=== PATIENT | female | born 1940 | race Caucasian/White ===

== ENCOUNTER 2018-04-12 20:06 | Inpatient (IN) | payer MEDICARE ==
[2018-04-12] MEDS ORDERED: NS 0.9% 1000 ML*IV.FLUID IV ONE (20:26)
[2018-04-12] MEDS ORDERED: cefTRIAXone(*) 1 GM in NS 0.9% 50 ML* 50 ML IVPB ONE (20:27)
--- NOTE | 2018-04-12 20:30 | ED ---
HPI Febrile Illness - HPI Summary HPI Summary: Level 5 caveat: Unable to obtain complete HPI due to dementia The pt is a 77 y/o female presenting to [facility] c/o fever reaching 103.4 F since 18:00 today. She arrives from [facility] Staff report new urinary incontinence, hypertension and confusion. - History of Current Complaint Chief Complaint: EDFever Time Seen by Provider: 04/12/18 20:17 Hx Obtained From: Family/Geological Manager - [facility] staff, EMS Hx From Patient Unobtainable Due To: Dementia Onset/Duration: Started Hours Ago - 18:00hrs, Still Present Timing: Constant Current Severity: Moderate Pain Intensity: 6 Pain Scale Used: 0-10 Numeric Aggravating Factors: Nothing Alleviating Factors: Nothing - Additional Pertinent History Primary Care Physician: EMA - Allergy/Home Medications Allergies/Adverse Reactions: Allergies Allergy/AdvReac Type Severity Reaction Status Date / Time Penicillins Allergy Hives/Diff. Verified 04/12/18 20:13 Breathing/I tching Sulfa (Sulfonamide Allergy Hives/Diff. Verified 04/12/18 20:13 Antibiotics) Breathing/I tching PMH/Surg Hx/FS Hx/Imm Hx Previously Healthy: No - Level 5 caveat: Unable to obtain complete PMHx due to dementia Endocrine/Hematology History: Reports: Hx Thyroid Disease Denies: Hx Diabetes Cardiovascular History: Denies: Hx Hypertension, Hx Pacemaker/ICD GI History: Reports: Hx Gall Bladder Disease History: Denies: Hx Renal Disease Musculoskeletal History: Reports: Hx Osteoporosis, Other Musculoskeletal History - carpel tunnel Denies: Hx Arthritis, Hx Rheumatoid Arthritis Sensory History: Reports: Hx Contacts or Glasses Denies: Hx Hearing Aid Opthamlomology History: Reports: Hx Contacts or Glasses Neurological History: Reports: Hx Dementia Psychiatric History: Reports: Hx Depression, Other Psychiatric Issues/Disorders Denies: Hx Eating Disorder, Hx Panic Disorder, Hx of Violent Episodes Against Others - Cancer History Hx Chemotherapy: No Hx Radiation Therapy: No - Surgical History Surgery Procedure, Year, and Place: Carpel tunnel surgery bilaterally, hysterectomy, appendectomy. LEGS- VEIN STRIPPING Hx Anesthesia Reactions: No Infectious Disease History: No Infectious Disease History: Denies: Traveled Outside the [place] in Last 30 Days - Family History Known Family History: Positive: Unknown - Social History Occupation: Retired Lives: With Family Alcohol Use: Daily Alcohol Amount: 4-6 beers/day, sometimes more Substance Use Type: Reports: None Smoking Status (MU): Former Smoker Review of Systems - ROS Summary Review of Systems Summary: Level 5 caveat: Unable to obtain complete ROS due to dementia Constitutional: Other - Positive: Confusion Positive: Fever - 103.4 F Cardiovascular: Other - Positive: HTN Positive: incontinence - Urinary All Other Systems Reviewed And Are Negative: Yes Physical Exam - Summary Physical Exam Summary: Level 5 caveat: Unable to obtain complete PE due to dementia General: The pt is demented. No pain distress. She does not answer any questions Skin: Dry mucosal mebranes. Warm, Color reflects adequate perfusion, Dry Head: normal Eyes: EOMI, KARL ENT: normal Neck: supple, nontender Respiratory: CTA, breath sounds present Cardiovascular: RRR Abdomen: soft, nontender Bowel: present Musculoskeletal: normal, strength/ROM intact Neurological: sensory/motor intact, A&O x3 Psychological: affect/mood appropriate Triage Information Reviewed: Yes Vital Signs On Initial Exam: Initial Vitals Temp Pulse Resp BP Pulse Ox 103.4 F 75 18 123/55 94 04/12/18 20:10 04/12/18 20:10 04/12/18 20:10 04/12/18 20:10 04/12/18 20:10 Vital Signs Reviewed: Yes Diagnostics - Vital Signs Vital Signs Temp Pulse Resp BP Pulse Ox 04/12/18 20:10 103.4 F 75 18 123/55 94 - Laboratory Result Diagrams: 04/12/18 20:41 04/12/18 20:41 Lab Statement: Any lab studies that have been ordered have been reviewed, and results considered in the medical decision making process. - Radiology CXR Radiology Interpretation Completed By: ED Physician - IMPRESSION: No acute disease Course/Dx - Course Course Of Treatment: Medications reviewed. Allergies noted. ADMIT HOSPITALIST. CRITICAL CARE TIME LESS THAN 30 MINUTES. - Diagnoses Provider Diagnoses: UTI (urinary tract infection), Fever, Altered mental status - Provider Notifications Discussed Care Of Patient With: Aaron Contreras - Hospitalist Instructed by Provider To: Admit As Inpatient Discharge - Sign-Out/Discharge Documenting (check all that apply): Patient Departure - Discharge Plan Condition: Fair Disposition: ADMITTED TO [facility] Referrals: Chelsea Huntley NP [Nurse Practitioner] - - Billing Disposition and Condition Condition: FAIR Disposition: Admitted to Health System - Attestation Statements Document Initiated by Nash: Yes Documenting Scribe: Courtney Choe Provider For Whom Nash is Documenting (Include Credential): Dr. Mirza Duval MD Scribe Attestation: ICourtney , scribed for Dr. Mirza Duval MD on 04/12/18 at 2144. Scribe Documentation Reviewed: Yes Provider Attestation: The documentation as recorded by the scribeCourtney accurately reflects the service I personally performed and the decisions made by me, Dr. Mirza Duval MD
[2018-04-12] MEDS ORDERED: Ibuprofen TAB* 600 MG PO ONE (20:35)
[2018-04-12 20:59] LABS: ABS Basophils 0 10^3/ul (0-0.2); ABS Eosinophils 0 10^3/ul (0-0.6); ABS Lymphocytes 0.5 10^3/ul (1.0-4.8); ABS Monocytes 0.8 10^3/ul (0-0.8); ABS Neutrophils 5.7 10^3/ul (1.5-7.7); ABS Nucleated RBC 0 10^3/ul; Eosinophil % 0.7 % (0-6); Hematocrit 32 % (35-47); Hemoglobin 11.1 g/dl (12.0-16.0); Lymphocyte % 6.7 % (25-47); Mean Corpuscular HGB Conc 35 g/dl (31-36); Mean Corpuscular Hemoglobin 32 pg (27-31); Mean Corpuscular Volume 94 fL (80-97); Mean Platelet Volume 7.1 um3 (7.4-10.4); Nucleated Red Blood Cells % 0; Platelet Count 170 10^3/ul (150-450); Red Blood Count 3.42 10^6/ul (4.00-5.40); Red Cell Distribution Width 14 % (10.5-15); White Blood Count 7.1 10^3/ul (3.5-10.8)
[2018-04-12 21:08] LABS: INR 0.99 (0.77-1.02)
[2018-04-12 21:12] LABS: EGFR Non-African American 78.5 (>60)
[2018-04-12 21:36] LABS: Urine Appearance Cloudy; Urine Blood 1+ (Negative); Urine Color Yellow; Urine Ketones Negative (Negative); Urine Protein 1+(30 mg/dL) (Negative); Urine Red Blood Cell 3+(>10/hpf) (Absent); Urine Specific Gravity 1.014 (1.010-1.030); Urine Urobilinogen Negative (Negative); Urine White Blood Cell 3+(>20/hpf) (Absent)
[2018-04-12] MEDS ORDERED: Ondansetron INJ* 2 MG/ML VIAL IV PRN (21:44)
[2018-04-12] MEDS ORDERED: NS 0.9% 1000 ML* 1,000 ML IV SCH (21:45)
--- NOTE | 2018-04-13 00:56 | HP ---
AMENDED REPORT NOW INCLUDES DESIGNATED COSIGNER CC: Dr. Delgado * HISTORY AND PHYSICAL: DATE OF ADMISSION: 04/12/18 PRIMARY CARE PROVIDER: Dr. Delgado. ATTENDING PHYSICIAN WHILE IN THE HOSPITAL: Dr. Oquendo * (report dictated by Aaron Contreras, ANA). CHIEF COMPLAINT: Altered mental status. HISTORY OF PRESENTING ILLNESS: I would like to preface this report by saying the patient has a significant amount of dementia. She is really unable to participate in the HPI. Most of the history of presenting illness was obtained from discussion with the patient's son. Mrs. Bonilla is a 77-year-old female patient with a pretty significant history of dementia, history of recurrent UTIs , tobacco abuse in the past, hypothyroidism, and a history of paranoia, particularly when she has infection. She is presenting today. It was noted by staff this evening that she was not acting herself. They checked her, she had a fever. They alerted the son and she was sent to the hospital. The son states that he really has not seen her last couple of weeks because he has had been getting over a cold himself, but he did see her today. The staff had reported to him that she had flushed her Depend down the toilet and had also flushed her underwear down the toilet, which she has done in the past previously when she has had a UTI. She was noted today to have a fever of 101.4. There was no report of vomiting or diarrhea. The son reports that she ate all of her lunch today, had no episodes of choke, and there has been no reports recently of fevers or chills. It is unclear if she has had sick contact. She came into the ED today. It was noted that she had a fever here of 103 rectally, it was also noted that she had a UTI, and because of this we were asked to evaluate for admission. There has been, again, no reports of vomiting or diarrhea and the son says that to his knowledge there has not been any change in medications. PAST MEDICAL HISTORY: Significant for: 1. Dementia. 2. Tobacco abuse. 3. History of UTIs. 4. Hypothyroidism. 5. History of paranoia. PAST SURGICAL HISTORY: 1. She has had a carpal tunnel release. 2. Vein stripping. 3. Appendectomy. 4. Hysterectomy. 5. Toe surgery. MEDICATIONS: Home meds, we are trying to get an accurate list, but according to Ashley, she is on: 1. Baclofen 1 tablet 3 times a day as needed. 2. Lasix 20 mg daily. 3. Potassium 20 mEq daily. 4. Celexa 20 mg daily. 5. Seroquel 25 mg at bedtime. 6. Synthroid 75 mcg daily. We are getting a list faxed from [facility] to confirm this. ALLERGIES TO MEDICATIONS: Include PENICILLIN and SULFA. FAMILY HISTORY: Her mother had dementia. Her father had cancer. SOCIAL HISTORY: She used to be a smoker, she used to be a heavy drinker, both of which she does not do anymore. She resides at [facility]. Surrogate decision maker is her son. REVIEW OF SYSTEMS: Unable to be obtained from the patient herself because of the advanced dementia and the altered mental status. PHYSICAL EXAMINATION GENERAL: At this time, Mrs. Bonilla is a 77-year-old female patient. She is sitting in the ED stretcher. She does not appear to be in any acute distress. VITAL SIGNS: Blood pressure 113/56, pulse 74, respirations are 18, O2 saturation 95%, temperature 103.4 rectally. HEENT: Head: Atraumatic and normocephalic. Eyes: EOMs are intact. Sclerae anicteric and not pale. Throat: Oral mucosa appears to be dry. No oropharyngeal erythema. NECK: Supple. LUNGS: Clear to auscultation bilaterally. There were no wheezes, rales, or rhonchi. HEART: Sounds S1, S2. She had a regular rate and rhythm. No murmurs, rubs, or gallops. ABDOMEN: Soft, it was flat, it was nontender. Bowel sounds were present. EXTREMITIES: Pulses were 2+ throughout. She had no peripheral edema. She is grossly moving all 4 extremities. NEUROLOGICAL: She is sedate, but she does arouse to painful stimuli. She did follow simple commands. She was able to sit up for me. She had no facial drooping. She moved all 4 extremities. There were no gross focal deficits, but neuro exam was difficult given the lack of patient's participation and her underlying delirium. SKIN: Intact. DIAGNOSTIC STUDIES/LAB DATA: WBC today was 7.1, RBC of 3.42, hemoglobin of 11.1, hematocrit of 32, platelet count was 170. Her INR 0.99, PTT of 31.7. Sodium was 138, potassium was 3.4, chloride of 105, bicarb was 26, BUN 16, creatinine 0.72, glucose of 132, lactate 0.7, calcium 9.2. Total bili 0.5, AST 14, ALT 11, alk phos 62. Troponin 0.01. CRP is pending. BNP of 88. Lipase was normal. Urine showed 1+ blood, 1+ protein, positive nitrites, 2+ leukocyte esterase, 3+ wbc's, 3+ rbc's, there was absent bacteria. Chest x-ray obtained today. It is a poor film. Poor inspiration effort, but I do not appreciate any acute infiltrates or pulmonary edema. Old medical records were reviewed. Microbiology in the past has grown group B strep for urine. ASSESSMENT AND PLAN: Mrs. Bonilla is a 77-year-old female patient coming into the emergency department today with complaints of altered mental status and fever. On evaluation, found to have urinary tract infection. She will be admitted under inpatient status for: 1. Sepsis. At this point, she did have a lactate that was normal. Blood cultures were sent. She did get 30 cc/kg fluid bolus ordered here in the emergency department and Rocephin was started. I am going to continue the Rocephin. We will send off blood cultures. Urine cultures are pending, and I did check a flu swab as well and we will continue to follow her with antibiotic therapy. 2. History of dementia with acute delirium. Treat the underlying urinary tract infection. I will hold her Seroquel tonight given the fact that she is again drowsy and we will restart when able. 3. History of hypothyroidism. Again, we are confirming her dose; we will continue. 4. History of paranoia. Restart her Seroquel when able. I will also get a bedside swallow evaluation tomorrow just to make sure there was not any aspiration, but I suspect this is less likely, there has been no complaints of respiratory symptoms. 5. DVT prophylaxis: I have ordered heparin subcutaneous. 6. History of lower extremity edema. I do see that she is on Lasix. I am holding that in the setting of acute illness, we can restart at discharge. 7. Code status: She is a DNR per the son. There is a DNR copy from [facility] in the chart. 8. Fluids, electrolytes, nutrition: N.p.o. Normal saline has been ordered at 100 an hour. I am replacing her potassium as that was low at 3.4. TIME SPENT: Time spent on admission was 60 minutes, greater than half the time was spent [id number] with the patient obtaining my history and physical, other half the time spent going over the plan of care with the patient and implementing plan of care. I did discuss the plan of care with my attending, Dr. Oquendo; she is in agreement. AARON CONTRERAS, ANA [id number]/CPS #: [id number] ALEJANDRO
[2018-04-13] MEDS: KCL 10 MEQ/50 ML IVPREMIX* 10 MEQ/50 ML BAG IV SCH ×3 (02:08→04:29)
[2018-04-13] MEDS: Heparin VIAL(*) 5000 UNITS/ML VIAL (FIVE THOUSAND) SUBCUT SCH ×4 (02:08→21:00)
[2018-04-13] MEDS ORDERED: QUEtiapine TAB* 25 MG PO ONE (02:43)
[2018-04-13] MEDS ORDERED: Ziprasidone IM INJ* 20 MG/ML VIAL IM ONE (02:58)
[2018-04-13] MEDS: Levothyroxine TAB* 75 MCG TAB PO SCH (05:13)
--- NOTE | 2018-04-13 07:26 | RAD ---
INDICATION: Fever. COMPARISON: Comparison is made with a prior study from November 08, 2014. TECHNIQUE: A portable view of the chest was obtained. FINDINGS: Cardiac and mediastinal contours appear to be within normal limits. The lungs are underinflated. There is a small infiltrate at the left lung base. No pleural effusion is seen. IMPRESSION: LOW LUNG VOLUMES, SMALL LEFT BASILAR INFILTRATE. R1F
[2018-04-13 07:32] LABS: ABS Basophils 0 10^3/ul (0-0.2); ABS Eosinophils 0.1 10^3/ul (0-0.6); ABS Lymphocytes 0.6 10^3/ul (1.0-4.8); ABS Monocytes 0.7 10^3/ul (0-0.8); ABS Neutrophils 6.1 10^3/ul (1.5-7.7); ABS Nucleated RBC 0 10^3/ul; Eosinophil % 1.1 % (0-6); Hematocrit 31 % (35-47); Hemoglobin 10.5 g/dl (12.0-16.0); Lymphocyte % 7.5 % (25-47); Mean Corpuscular HGB Conc 34 g/dl (31-36); Mean Corpuscular Hemoglobin 32 pg (27-31); Mean Corpuscular Volume 93 fL (80-97); Mean Platelet Volume 7.1 um3 (7.4-10.4); Nucleated Red Blood Cells % 0; Platelet Count 153 10^3/ul (150-450); Red Blood Count 3.32 10^6/ul (4.00-5.40); Red Cell Distribution Width 15 % (10.5-15); White Blood Count 7.5 10^3/ul (3.5-10.8)
[2018-04-13 07:51] LABS: EGFR Non-African American 109.5 (>60)
[2018-04-13] MEDS: Famotidine TAB* 20 MG PO SCH (07:57)
[2018-04-13] MEDS: Aspirin 81 mg CHEW TAB* 81 MG TAB.CHEW PO SCH (07:57)
[2018-04-13] MEDS: Citalopram TAB* 20 MG PO SCH (07:57)
[2018-04-13] MEDS: Acetaminophen SUPP* 650 MG SUPP PR PRN ×2 (07:58→20:11)
--- NOTE | 2018-04-13 11:16 | PN ---
Subjective Date of Service: 04/13/18 Interval History: Patient awake, remain confused but alert. Nurse staff did bedside evaluations and report she did well with swallowing. No acute events overnight. She does not know where she is but she does reply "Bill"! she can tell me her full name. Past Medical History: Unchanged from Admission Objective Active Medications: Acetaminophen (Tylenol Supp*) 650 mg MN Q4H PRN PRN Reason: FEVER/PAIN Last Admin: 04/13/18 07:58 Dose: 650 mg Aspirin (Aspirin 81 Mg Chew Tab*) 81 mg PO DAILY [facility] Last Admin: 04/13/18 07:57 Dose: 81 mg Citalopram Hydrobromide (Celexa Tab*) 20 mg PO DAILY [facility] Last Admin: 04/13/18 07:57 Dose: 20 mg Famotidine (Pepcid Tab*) 10 mg PO QAM [facility] Last Admin: 04/13/18 07:57 Dose: 10 mg Heparin Sodium (Porcine) (Heparin Vial(*)) 5,000 units SUBCUT Q8HR [facility] Last Admin: 04/13/18 05:13 Dose: Not Given Ceftriaxone Sodium 1 gm/ (Sodium Chloride) 50 mls @ 200 mls/hr IVPB Q24H [facility] Levothyroxine Sodium (Synthroid Tab*) 75 mcg PO DAILY@0600 [facility] Last Admin: 04/13/18 05:13 Dose: Not Given Vital Signs - 8 hr 04/13/18 04/13/18 04/13/18 03:17 07:39 08:00 Temperature 101.0 F Pulse Rate 78 Respiratory 26 26 Rate Blood Pressure 140/65 (mmHg) O2 Sat by Pulse 100 92 92 Oximetry Oxygen Devices in Use Now: Nasal Cannula Appearance: Awake, alert. no acute distress Eyes: No Scleral Icterus, PERRLA Ears/Nose/Mouth/Throat: NL Teeth, Lips, Gums, Clear Oropharnyx Neck: NL Appearance and Movements; NL JVP, Trachea Midline Respiratory: Symmetrical Chest Expansion and Respiratory Effort, Clear to Auscultation Cardiovascular: NL Sounds; No Murmurs; No JVD, RRR Abdominal: NL Sounds; No Tenderness; No Distention Extremities: No Edema Skin: No Rash or Ulcers Neurological: - - disoriented to place, person and time Result Diagrams: 04/13/18 07:20 04/13/18 07:20 Microbiology and Other Data: Microbiology 04/12/18 23:00 Nasal Screen MRSA (PCR) - Final Nasal Mrsa Not Detected 04/12/18 23:04 Influenza Types A,B Antigen - Final Nasopharyngeal Specimen received for Influenza A/B Molecular testing Assess/Plan/Problems-Billing Assessment: 77 year old female, admitted to [facility] after she was noted to have confusion ( worse than baseline...flushing her underwear and depends down the toiler... similar to her previous behavior when she has UTI), in the ED she had fever 103 and positive UA. Admitted for UTI! - Patient Problems (1) UTI (lower urinary tract infection) Current Visit: No Status: Acute Code(s): N39.0 - URINARY TRACT INFECTION, SITE NOT SPECIFIED SNOMED Code(s): 4332703 Comment: - UA grossly positive. Awaiting final culture - On IV rocephin empirically Day # 2 - Will advance diet (2) Hypothyroid Current Visit: No Status: Acute Code(s): E03.9 - HYPOTHYROIDISM, UNSPECIFIED SNOMED Code(s): 37865744 Comment: - Continue current dose of synthroid 75 mcg daily (3) Lewy body dementia Current Visit: No Status: Acute Comment: - On celexa 20 mg daily (4) Psychotic disorder Current Visit: No Status: Acute Priority: High Onset Date: 11/11/14 Comment: - On celexa 20 mg daily (5) Dementia Current Visit: No Status: Suspected Priority: High Onset Date: 11/11/14 Code(s): F03.90 - UNSPECIFIED DEMENTIA WITHOUT BEHAVIORAL DISTURBANCE SNOMED Code(s): 76306737 Comment: - On celexa 20 mg daily (6) DVT prophylaxis Current Visit: No Status: Acute Code(s): [id number] - SNOMED Code(s): 250725000 Comment: SQ heparin
[2018-04-13] MEDS: QUEtiapine TAB* 25 MG PO SCH (17:29)
[2018-04-13] MEDS: cefTRIAXone(*) 1 GM in NS 0.9% 50 ML* 50 ML IVPB SCH (21:00)
[2018-04-14] MEDS: Heparin VIAL(*) 5000 UNITS/ML VIAL (FIVE THOUSAND) SUBCUT SCH ×3 (06:19→21:21)
[2018-04-14] MEDS: Levothyroxine TAB* 75 MCG TAB PO SCH (06:20)
[2018-04-14 07:22] LABS: ABS Basophils 0 10^3/ul (0-0.2); ABS Eosinophils 0.3 10^3/ul (0-0.6); ABS Lymphocytes 0.7 10^3/ul (1.0-4.8); ABS Monocytes 0.6 10^3/ul (0-0.8); ABS Neutrophils 3.3 10^3/ul (1.5-7.7); ABS Nucleated RBC 0 10^3/ul; Eosinophil % 5.5 % (0-6); Hematocrit 31 % (35-47); Hemoglobin 10.3 g/dl (12.0-16.0); Lymphocyte % 13.4 % (25-47); Mean Corpuscular HGB Conc 34 g/dl (31-36); Mean Corpuscular Hemoglobin 32 pg (27-31); Mean Corpuscular Volume 94 fL (80-97); Mean Platelet Volume 7.1 um3 (7.4-10.4); Nucleated Red Blood Cells % 0; Platelet Count 141 10^3/ul (150-450); Red Blood Count 3.27 10^6/ul (4.00-5.40); Red Cell Distribution Width 14 % (10.5-15); White Blood Count 4.9 10^3/ul (3.5-10.8)
[2018-04-14 07:47] LABS: EGFR Non-African American 111.9 (>60)
[2018-04-14] MEDS: QUEtiapine TAB* 25 MG PO SCH ×2 (07:54→17:20)
[2018-04-14] MEDS: Baclofen TAB* 10 MG PO SCH (07:54)
[2018-04-14] MEDS: Aspirin 81 mg CHEW TAB* 81 MG TAB.CHEW PO SCH (07:55)
[2018-04-14] MEDS: Famotidine TAB* 20 MG PO SCH (07:55)
[2018-04-14] MEDS: Citalopram TAB* 20 MG PO SCH (07:55)
[2018-04-14] MEDS: Potassium Chlor TAB* 20 MEQ TAB.ER PO SCH (07:55)
--- NOTE | 2018-04-14 11:35 | PN ---
Subjective Date of Service: 04/14/18 Interval History: Patient seen this morning. She is awake, answer questions appropriately. Confused to time but able to state she is in [facility]. no events overnight. remains afebrile. BC this morning came back positive for E-Coli 1/ 2 but similar to her UTI. BP improved Past Medical History: Unchanged from Admission Objective Active Medications: Acetaminophen (Tylenol Supp*) 650 mg ID Q4H PRN PRN Reason: FEVER/PAIN Last Admin: 04/13/18 20:11 Dose: 650 mg Aspirin (Aspirin 81 Mg Chew Tab*) 81 mg PO DAILY [facility] Last Admin: 04/14/18 07:55 Dose: 81 mg Baclofen (Lioresal Tab*) 10 mg PO DAILY [facility] Last Admin: 04/14/18 07:54 Dose: 10 mg Citalopram Hydrobromide (Celexa Tab*) 20 mg PO DAILY [facility] Last Admin: 04/14/18 07:55 Dose: 20 mg Famotidine (Pepcid Tab*) 10 mg PO QAM [facility] Last Admin: 04/14/18 07:55 Dose: 10 mg Heparin Sodium (Porcine) (Heparin Vial(*)) 5,000 units SUBCUT Q8HR [facility] Last Admin: 04/14/18 06:19 Dose: 5,000 units Ceftriaxone Sodium 1 gm/ (Sodium Chloride) 50 mls @ 200 mls/hr IVPB Q24H [facility] Last Admin: 04/13/18 21:00 Dose: 200 mls/hr Levothyroxine Sodium (Synthroid Tab*) 75 mcg PO DAILY@0600 [facility] Last Admin: 04/14/18 06:20 Dose: 75 mcg Potassium Chloride (Klor Con Er Tab*) 20 meq PO DAILY [facility] Last Admin: 04/14/18 07:55 Dose: 20 meq Quetiapine Fumarate (Seroquel Tab*) 37.5 mg PO QAM [facility] Last Admin: 04/14/18 07:54 Dose: 37.5 mg Quetiapine Fumarate (Seroquel Tab*) 50 mg PO QPM [facility] Last Admin: 04/13/18 17:29 Dose: 50 mg Vital Signs - 8 hr 04/14/18 04/14/18 07:58 08:00 Temperature 98.5 F Pulse Rate 58 Respiratory 21 18 Rate Blood Pressure 140/80 (mmHg) O2 Sat by Pulse 95 95 Oximetry Oxygen Devices in Use Now: None Appearance: Awake, Alert. No distress Eyes: No Scleral Icterus, - - EOMI Ears/Nose/Mouth/Throat: NL Teeth, Lips, Gums, Clear Oropharnyx, Mucous Membranes Moist Neck: NL Appearance and Movements; NL JVP, Trachea Midline Respiratory: Symmetrical Chest Expansion and Respiratory Effort, Clear to Auscultation Cardiovascular: NL Sounds; No Murmurs; No JVD, RRR Abdominal: NL Sounds; No Tenderness; No Distention Extremities: No Edema Skin: No Rash or Ulcers Neurological: Alert and Oriented x 3 Result Diagrams: 04/14/18 06:57 04/14/18 06:57 Microbiology and Other Data: Microbiology 04/12/18 23:00 Nasal Screen MRSA (PCR) - Final Nasal Mrsa Not Detected 04/12/18 23:04 Influenza Types A,B Antigen - Final Nasopharyngeal Specimen received for Influenza A/B Molecular testing Assess/Plan/Problems-Billing Assessment: 77 year old female, admitted to [facility] after she was noted to have confusion ( worse than baseline...flushing her underwear and depends down the toiler... similar to her previous behavior when she has UTI), in the ED she had fever 103 and positive UA. Admitted for UTI! - Patient Problems (1) UTI (lower urinary tract infection) Current Visit: No Status: Acute Code(s): N39.0 - URINARY TRACT INFECTION, SITE NOT SPECIFIED SNOMED Code(s): 6143010 Comment: - UC positive for E-Coli. On Ceftriaxone Day # 3 Sensitivity final - This morning one of her Blood culture turned positive for E-Coli. Sensitivity pending on the blood culture, I assume should be same organism as her UC. - I did order US to rule out obstructive uropathy. If she does have stone, than will need outpatient referral for urology. If no hydronephrosis, I will complete at least 10 days course Abx pending final sensitivity of her blood. We can switch to oral Keflex if Blood culture comes back same sensitiviy as the Urine (2) Hypothyroid Current Visit: No Status: Acute Code(s): E03.9 - HYPOTHYROIDISM, UNSPECIFIED SNOMED Code(s): 36330891 Comment: - Continue current dose of synthroid 75 mcg daily (3) Lewy body dementia Current Visit: No Status: Acute Comment: - On celexa 20 mg daily (4) Psychotic disorder Current Visit: No Status: Acute Priority: High Onset Date: 11/11/14 Comment: - On celexa 20 mg daily and seroquel (5) Dementia Current Visit: No Status: Suspected Priority: High Onset Date: 11/11/14 Code(s): F03.90 - UNSPECIFIED DEMENTIA WITHOUT BEHAVIORAL DISTURBANCE SNOMED Code(s): 44208011 Comment: - On celexa 20 mg daily and seroquel (6) DVT prophylaxis Current Visit: No Status: Acute Code(s): [id number] - SNOMED Code(s): 590137153 Comment: SQ heparin
--- NOTE | 2018-04-14 15:37 | RAD ---
Indication: Urinary tract infection. Bacteremia. Comparison: No relevant prior exams available on the [facility] PACS for comparison. Technique: Renal ultrasound. Report: 9.6 x 5.5 x 4.9 cm RIGHT kidney. 9.7 x 4.5 x 4.4 cm LEFT kidney. Normal bilateral renal cortical echogenicity. No conspicuous stones or hydronephrosis. Simple appearing 1.7 cm cyst medial upper pole RIGHT kidney and 1.1 cm cyst lateral inferior pole LEFT kidney. No suspicious focal renal lesions evident. Negative for perinephric fluid. IMPRESSION: #. Negative for hydronephrosis or conspicuous nephrolithiasis.
[2018-04-14] MEDS: cefTRIAXone(*) 1 GM in NS 0.9% 50 ML* 50 ML IVPB SCH (21:19)
[2018-04-15] MEDS: Levothyroxine TAB* 75 MCG TAB PO SCH (05:29)
[2018-04-15] MEDS: Heparin VIAL(*) 5000 UNITS/ML VIAL (FIVE THOUSAND) SUBCUT SCH (05:29)
[2018-04-15 07:50] LABS: ABS Basophils 0 10^3/ul (0-0.2); ABS Eosinophils 0.3 10^3/ul (0-0.6); ABS Lymphocytes 0.9 10^3/ul (1.0-4.8); ABS Monocytes 0.6 10^3/ul (0-0.8); ABS Neutrophils 4.8 10^3/ul (1.5-7.7); ABS Nucleated RBC 0 10^3/ul; Eosinophil % 4.2 % (0-6); Hematocrit 32 % (35-47); Hemoglobin 10.8 g/dl (12.0-16.0); Lymphocyte % 13.4 % (25-47); Mean Corpuscular HGB Conc 34 g/dl (31-36); Mean Corpuscular Hemoglobin 32 pg (27-31); Mean Corpuscular Volume 93 fL (80-97); Mean Platelet Volume 7.8 um3 (7.4-10.4); Nucleated Red Blood Cells % 0.1; Platelet Count 186 10^3/ul (150-450); Red Blood Count 3.41 10^6/ul (4.00-5.40); Red Cell Distribution Width 14 % (10.5-15); White Blood Count 6.6 10^3/ul (3.5-10.8)
[2018-04-15] MEDS: Famotidine TAB* 20 MG PO SCH (09:08)
[2018-04-15] MEDS: Aspirin 81 mg CHEW TAB* 81 MG TAB.CHEW PO SCH (09:09)
[2018-04-15] MEDS: Citalopram TAB* 20 MG PO SCH (09:09)
[2018-04-15] MEDS: Baclofen TAB* 10 MG PO SCH (09:09)
[2018-04-15] MEDS: Potassium Chlor TAB* 20 MEQ TAB.ER PO SCH (09:09)
[2018-04-15] MEDS: QUEtiapine TAB* 25 MG PO SCH (09:10)
[2018-04-15 12:41] VITALS: BP 117/60
--- NOTE | 2018-04-16 06:35 | DS ---
DISCHARGE SUMMARY: DATE OF ADMISSION: 04/12/18 DATE OF DISCHARGE: 04/15/18 PRIMARY CARE PROVIDER: Dr. Delgado. ADMITTING PHYSICIAN: Aaron Contreras NP ATTENDING ON DAY OF DISCHARGE: Rios Whiting MD CHIEF COMPLAINT: Altered mental status. PRINCIPAL DIAGNOSES: 1. Escherichia coli urinary tract infection, Escherichia coli bacteremia. 2. Altered mental status. 3. Sepsis. HISTORY OF PRESENT ILLNESS AND HOSPITAL COURSE: Khadar Bonilla is a 77-year-old female with past medical history of severe dementia, frequent UTIs, hypothyroidism, former smoker, former heavy drinker, current resident of [place], who presented with altered mental status. Please see [facility] and P of Aaron Contreras for full details. She was noted to have a fever and acting strangely by flushing down her Depends and underwear down the toilet. Upon presentation to the [facility] ED, she had a fever of 103 rectally and was tachypneic up to 26. Urinalysis showed 2+ leukocyte esterase, positive nitrites, 2+ wbc's , and she was referred to the hospitalist service for admission. Her CRP was 61.6, white count was 7.1. Her urine culture ultimately grew E. coli, 75,000 to 100,000, that was sensitive to everything, but ampicillin and penicillin resistant and Augmentin (intermediate). One of her four blood cultures grew the same organism/sensitivities. She was treated with ceftriaxone for 3 days and her mental status improved back to her baseline of severe dementia. She defervesced. She was advised by Physical Therapy that she was at her previous baseline of functional mobility and had no acute physical therapy needs. She was able to ambulate 200 feet. She is being discharged to complete her oral antibiotics with a course of cefdinir. She normally does have a history of PENICILLIN and SULFA allergies. She also had a renal ultrasound on 04/14/18, which was negative for any hydronephrosis or nephrolithiasis. Chest x-ray on demonstrated low lung volumes and small left basilar infiltrate. DISCHARGE MEDICATIONS: Include: 1. Tylenol 500 mg p.o. b.i.d. 2. Aspirin 81 mg daily. 3. Baclofen 10 mg p.o. daily. 4. Tums 500 mg p.o. t.i.d. with meals p.r.n. 5. Cefdinir 300 mg p.o. b.i.d. for 7 more days (a total of 10-day course). 6. Cholecalciferol 1000 units p.o. daily. 7. Citalopram 20 mg p.o. daily. 8. Vitamin B12 500 mcg p.o. daily. 9. Furosemide 20 mg p.o. daily. 10. Levothyroxine 75 mcg p.o. daily. 11. Eucerin cream 120 mg topically b.i.d. 12. Potassium chloride 20 mEq tab p.o. daily. 13. Seroquel 50 mg p.o. q.p.m. and 37.5 mg p.o. q.a.m. 14. Ranitidine 75 mg p.o. q.a.m. Please note that the only new medication was the cefdinir. No other medication changes. DISCHARGE DIET: Regular, unrestricted. ACTIVITY LEVEL: No restrictions. FOLLOWUP: The patient was scheduled to follow up with her primary care provider , Dr. Raven Delgado, on 04/18/18. [id number]/[facility] #: [id number] MTDD
== END 2018-04-15 13:30 | disposition home or self-care (01) | DRG 872 ==
LOC: ED 20:06 → MED 21:42
PROVIDERS: ADMIT Internal Medicine; ATTEND Internal Medicine
DX: A41.51 Sepsis due to Escherichia coli [E. coli] (principal); N39.0 Urinary tract infection, site not specified; G31.83 Neurocognitive disorder with Lewy bodies; F02.80 Dementia in other diseases classified elsewhere, unspecified severity, without behavioral disturbance, psychotic disturbance, mood disturbance, and anxiety; B96.20 Unspecified Escherichia coli [E. coli] as the cause of diseases classified elsewhere; R41.82 Altered mental status, unspecified; E03.9 Hypothyroidism, unspecified; F22 Delusional disorders; Z16.11 Resistance to penicillins; Z87.891 Personal history of nicotine dependence; Z88.0 Allergy status to penicillin; Z88.2 Allergy status to sulfonamides; Z79.899 Other long term (current) drug therapy; Z80.9 Family history of malignant neoplasm, unspecified
CPT/HCPCS: 36415; 71045; 76775; 80048; 80053; 81003; 81015; 83605; 83690; 83735; 83880; 84100; 84145; 84484; 85025; 85610; 85730; 86140; 87040; 87077; 87086; 87186; 87641; 96365; 99284; A9270-GY; G8978-GP-CH; G8979-GP-CH; G8980-GP-CH; J0696; J1644; J3480

== ENCOUNTER 2019-04-20 18:49 | Emergency (ER) | payer MEDICARE ==
--- OUTSIDE RECORDS SUMMARY | 2019-04-20 19:14 | XMS REPORT | Continuity of Care Document ---
:1940 External Reference #:[id number] Author Name Aniceto Wilson M.D. 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 Onset: 04/12/2018 Delusional disorders Porfirio Contreras N.PSamuel Onset: 04/12/2018 Unspecified Escherichia coli [E. coli] as Zen Carranza M.D. Onset: the cause of diseases classified elsewhere Sepsis due to Escherichia coli [E. coli] Rios Whiting MD Onset: 04/15/2018 Social History Type Date Description Comments Sex Unknown ETOH Use Denies alcohol use Tobacco Use Start: Unknown End: Patient is a former smoker Patient quit 32 years Unknown ago Smoking Status Reviewed: 02/20/19 Patient is a former smoker Patient quit 32 years ago Allergies, Adverse Reactions, Alerts Active Allergies Reaction Severity Comments Date Sulfa Antibiotics 04/12/2015 Penicillins 04/12/2015 Inactive Allergies NKDA 02/16/2015 Medications Active Medications SIG Qnty Indications Ordering Date Provider Citalopram 1 by mouth daily 30tabs G31.83 Florina Ayala 06/07/2015 Hydrobromide in the morning Dong Medel 20mg Tablets Seroquel [id number] 06/18 60tabs G31.83 Natasha Marshall MD 04/12/2015 25mg Tablets tablet in the morning and 2 tablets by mouth every day at bedtime Levothyroxine Sodium 1 by mouth every Unknown day 75mcg Tablets Ensure multiple flavors Unknown Liquid 2x a day as needed Furosemide 2 by mouth in the Unknown 20mg Tablet morning Vitamin D 1 by mouth every Unknown (Cholecalciferol) day 1000Unit Capsules Potassium Chloride 1 by mouth every Unknown Marine ER day 20Meq Tablets ER Aspirin Adult Low Dose 1 by mouth every Unknown day 81mg Tablets DR Vitamin B12 1 by mouth every Unknown 500mcg day Tablets Econazole Nitrate topical prn Unknown 1% Cream Baclofen one tab midday or Unknown 10mg Tablets as needed Ranitidine HCL daily in the Unknown 75mg morning Tablets Acetaminophen Extra 2 tabs by mouth Unknown Strength every 8 hours as 500mg Tablets needed for pain or fever Immunizations Description No Information Available Vital Signs Date Vital Result Comment 02/20/2019 2:50pm Height 66 inches 5'6" Weight 197.25 lb Heart Rate 69 /min BP Systolic Sitting 118 mmHg BP Diastolic Sitting 76 mmHg O2 % BldC Oximetry 93 % BMI (Body Mass Index) 31.8 kg/m2 08/15/2018 1:12pm Height 66 inches 5'6" Weight 186.00 lb Heart Rate 82 /min BP Systolic 120 mmHg BP Diastolic 82 mmHg BMI (Body Mass Index) 30.0 kg/m2 Results Description No Information Available Procedures Description No Information Available Medical Devices Description No Information Available Encounters Description No Information Available Assessments Description No Information Available Plan of Treatment Future Appointment(s):08/21/2019 3:15 pm - Aniceto Wilson M.D. at [facility] Functional Status Description No Information Available Mental Status Description No Information Available Referrals Description No Information Available
--- NOTE | 2019-04-20 19:49 | ED ---
Lower Extremity - HPI Summary HPI Summary: The patient is a 78 y/o F arriving by ambulance to [facility] from [facility] accompanied by son with a concern for mechanical fall out of a chair this afternoon around 1500. Per patients son, he had just moved his mother from [place] to [place] today, and he had left her there with his sister so he could go package pick up some of her things when he received a call that his mother had been attempting to get out of the chair and fell onto her legs causing pain with standing. He does not believe that she had any associated head injury or LOC with the event. The patient states there is some pain in the lower left anterior leg, but she rates the pain 0/10 in severity. The patients son notes that she has only had three similar mechanical falls in the last 3-4 years. Usually she is active and often on her feet, and she does not use a walker for ambulating. She is able to bear weight on the leg. PMHx: thyroid disease, osteoporosis, dementia, depression. Former smoker, no EtOH, no substance use. Medications reviewed. Allergies noted. Level 5 Caveat secondary to dx of Alzheimer's disease, history obtained from son who is present in the room. - History of Current Complaint Chief Complaint: EDExtremityLower Stated Complaint: FELL OUT HER CHAIR PER EMS Time Seen by Provider: 04/20/19 19:20 Hx Obtained From: Family/Entry Level Manufacturing Engineer - son Hx From Patient Unobtainable Due To: Dementia Mechanism Of Injury: Fall From Height Of: - chair Onset of Pain: Post Accident Onset/Duration: Still Present Severity Initially: Mild Pain Intensity: 0 Pain Scale Used: 0-10 Numeric Location: Is Discrete @ - lower left anterior leg Associated Signs And Symptoms: Positive: Other - Negative: head injury, LOC Aggravating Factor(s): Standing Able to Bear Weight: Yes - Allergies/Home Medications Allergies/Adverse Reactions: Allergies Allergy/AdvReac Type Severity Reaction Status Date / Time Penicillins Allergy Hives/Diff. Verified 04/12/18 20:13 Breathing/I tching Sulfa (Sulfonamide Allergy Hives/Diff. Verified 04/12/18 20:13 Antibiotics) Breathing/I tching PMH/Surg Hx/FS Hx/Imm Hx Endocrine/Hematology History: Reports: Hx Thyroid Disease Denies: Hx Diabetes Cardiovascular History: Denies: Hx Hypertension, Hx Pacemaker/ICD GI History: Reports: Hx Gall Bladder Disease History: Reports: Hx Kidney Infection Denies: Hx Renal Disease Musculoskeletal History: Reports: Hx Osteoporosis, Other Musculoskeletal History - carpel tunnel Denies: Hx Arthritis, Hx Rheumatoid Arthritis Sensory History: Reports: Hx Contacts or Glasses Denies: Hx Hearing Aid Opthamlomology History: Reports: Hx Contacts or Glasses Neurological History: Reports: Hx Dementia - Alzheimer's Psychiatric History: Reports: Hx Depression, Other Psychiatric Issues/Disorders - Paranoia Denies: Hx Eating Disorder, Hx Panic Disorder, Hx of Violent Episodes Against Others - Cancer History Hx Chemotherapy: No Hx Radiation Therapy: No - Surgical History Surgery Procedure, Year, and Place: Carpel tunnel surgery bilaterally, hysterectomy, appendectomy. LEGS- VEIN STRIPPING Hx Anesthesia Reactions: No - Immunization History Date of Tetanus Vaccine: unk Date of Influenza Vaccine: unk Infectious Disease History: No Infectious Disease History: Denies: Traveled Outside the [place] in Last 30 Days - Family History Known Family History: Positive: Unknown - patient is a poor historian - Social History Alcohol Use: None Hx Substance Use: No Substance Use Type: Reports: None Hx Tobacco Use: Yes Smoking Status (MU): Former Smoker Review of Systems - ROS Summary Review of Systems Summary: Home Medications Medication Instructions Recorded Confirmed Type Cyanocobalamin TAB* [Vitamin B12 500 mcg PO DAILY 04/13/15 04/12/18 History TAB*] QUEtiapine TAB* [Seroquel 25 MG 37.5 mg PO QAM 04/13/15 04/12/18 History TAB*] Acetaminophen [Tylenol Extra 500 mg PO BID 04/12/18 04/12/18 History Strength] Aspirin 81 mg CHEW TAB* 81 mg PO DAILY 04/12/18 04/12/18 History Baclofen TAB* [Lioresal TAB*] 1 tab PO DAILY 04/12/18 04/12/18 History Calcium Carbonate CHEW TAB* [Tums*] 500 mg PO TID WITH MEALS PRN 04/12/18 History Cholecalciferol (Vitamin D3) 1,000 unit PO DAILY 04/12/18 04/12/18 History [Vitamin D3] Citalopram Hydrobromide [Celexa] 20 mg PO DAILY 04/12/18 04/12/18 History Furosemide 1 tab PO DAILY 04/12/18 04/12/18 History Levothyroxine Sodium 75 mcg PO DAILY 04/12/18 04/12/18 History Mineral Oil/Petrolatum,White 120 gm TP BID 04/12/18 04/12/18 History [Eucerin Creme] Potassium Chloride 1 tab PO DAILY 04/12/18 04/12/18 History Quetiapine Fumarate [Seroquel 50 50 mg PO QPM 04/12/18 04/12/18 History mg tab] raNITIdine HCl [Acid Tax Accounting Manager] 75 mg PO QAM 04/12/18 04/12/18 History Acetaminophen SUPP* [Tylenol Supp*] 650 mg MN Q4H PRN supp 04/15/18 Rx Cefdinir [Cefdinir 300 MG CAP] 300 mg PO BID #14 capsule 04/15/18 Rx Positive: Other - left anterior lower leg pain Neurological: Other - Negative: head injury, LOC (per son) All Other Systems Reviewed And Are Negative: No - Comments Additional Review of Systems Comments: Level 5 Caveat secondary to Alzheimer's disease Physical Exam - Summary Physical Exam Summary: General: Well-developed, Well-nourished elderly female. No acute distress. HEENT: Normocephalic, Atraumatic. Eyes: Conjuctiva normal, PERRL. Ears: TMs within normal limits. Nares: (-) discharge, (-) erythema. Oropharynx: Clear, mucous membranes moist, (-) exudates. Neck: Soft, FROM, (-) lymphadenopathy, (-) thyromegaly, (-) JVD. Cardiovascular: Normal sinus rhythm, (-) murmur. Lungs: Clear to auscultation bilaterally (-) wheezes, (-) rales, (-) rhonchi. Abdomen: Soft, non-tender, non-distended, (-) organomegaly, normal bowel sounds. Back: (-) CVA tenderness Extremities: No edema. Skin: Warm, dry, (-) rash. Neuro: Alert and oriented x3, no focal deficits. Psychiatric: Mood normal, affect normal. Triage Information Reviewed: Yes Vital Signs On Initial Exam: Initial Vitals Temp Pulse Resp BP Pulse Ox 98.8 F 62 16 106/79 93 04/20/19 19:00 04/20/19 19:00 04/20/19 19:00 04/20/19 19:00 04/20/19 19:00 Vital Signs Reviewed: Yes Completion Of Physical Exam Limited Due To: Dementia, Level 5 Procedures - Sedation Patient Received Moderate/Deep Sedation with Procedure: No Diagnostics - Vital Signs Vital Signs Temp Pulse Resp BP Pulse Ox 04/20/19 19:00 98.8 F 62 16 106/79 93 - Laboratory Lab Statement: Any lab studies that have been ordered have been reviewed, and results considered in the medical decision making process. Re-Evaluation - Re-Evaluation First Eval Re-Evaluation Time: 19:45 Change: Improved Comment: I have discussed results with the patient and she is able to ambulate well without difficulty or pain. Discussed symptoms that warrant immediate return to ED. Lower Extremity Course/Dx - Course Course Of Treatment: 78-year-old female status post fall forward out of chair. Patient with no complaints at this time. No significant tenderness on exam. No signs of injury. She is able to ambulate without difficulty. Patient discharged back to home with son. Follow-up with PCP. Follow up sooner for any worsening symptoms. - Diagnoses Provider Diagnoses: Fall, Leg pain Discharge ED - Sign-Out/Discharge Documenting (check all that apply): Patient Departure - Patient will be discharged home. - Discharge Plan Condition: Stable Disposition: HOME Patient Education Materials: Fall Prevention for Older Adults (ED), Leg Pain ( ED) Referrals: Raven Delgado MD [Primary Care Provider] - 3 Days Additional Instructions: Please follow up with your primary care physician within three days. Please return to ED for any new or worsening symptoms. - Billing Disposition and Condition Condition: STABLE Disposition: Home - Attestation Statements Document Initiated by Nash: Yes Documenting Scribe: Cherrie Blair Provider For Whom Nash is Documenting (Include Credential): Magdalena Pepper MD Scribe Attestation: Cherrie Rodrigez, scribed for Magdalena Pepper MD on 04/20/19 at 2242. Scribe Documentation Reviewed: Yes Provider Attestation: The documentation as recorded by the Cherrie gamboa accurately reflects the service I personally performed and the decisions made by me, Magdalena Pepper MD Status of Scribe Document: Viewed
[2019-04-20 20:15] VITALS: BP 0/0
== END 2019-04-20 19:58 | disposition home or self-care (01) ==
LOC: ED 18:49
DX: M79.606 Pain in leg, unspecified (principal); G30.9 Alzheimer's disease, unspecified; Z91.81 History of falling; Z87.891 Personal history of nicotine dependence; E03.9 Hypothyroidism, unspecified; M81.0 Age-related osteoporosis without current pathological fracture; Z88.2 Allergy status to sulfonamides; Z88.0 Allergy status to penicillin; F32.9 Major depressive disorder, single episode, unspecified; F02.80 Dementia in other diseases classified elsewhere, unspecified severity, without behavioral disturbance, psychotic disturbance, mood disturbance, and anxiety; Z79.899 Other long term (current) drug therapy
CPT/HCPCS: 99282